=== PATIENT | female | born 1970 | race African-American/Black ===

== ENCOUNTER 2019-02-16 14:20 | Emergency (ER) | payer OTHER ==
[2019-02-16 14:23] VITALS: BMI 31.6
--- NOTE | 2019-02-16 14:33 | PDOC ---
History of Present Illness <Verna Ly - Last Filed: 02/16/19 14:33> - General History Source: Patient Exam Limitations: No Limitations - History of Present Illness Initial Comments: 02/16/19 15:07 49y F presents with bumps her scalp for the past 1.5 minths. pt notse the bumps are not itchy, she has not had any hair treatments, new shampoos/conditioners/ hair products - [facility] kind [facility] that didnt help. she never had these before. denies any fever/chills, no bumps/masses anywhere else in her body. denies any other symptmos including fever/chills, cough, abd pain, n/v. ROS: HEAD: bumps on her head General: denies fver/chills, genearlized weakness neuro: denies headache exam: genearl: no acut edistress scalp: ocasional excoriation on scalp with surrounding dry flakey skin, no erythema/induration/fluctuance, mildly tender to plaption. unclear cause - no obviuos triger, does nto appear to be infectious. no signs of psoriasis or other skin/inflammatory condition will have pt fu with derm again return precautions were discussed I discussed the physical exam findings, ancillary test results and final diagnoses with the patient. I answered all of the patient's questions. The patient was satisfied with the care received and felt comfortable with the discharge plan and treatment plan. The patient will call their primary care physician within 24 hours to arrange follow-up and will return to the Emergency Department with any new, persistent or worsening symptoms. <Amando Simmons - Last Filed: 02/16/19 15:12> - General Chief Complaint: Rash Stated Complaint: SCABS IN HEAD Time Seen by Provider: 02/16/19 14:31 Past History - Past Medical History COPD: No - Surgical History Appendectomy: Yes - Immunization History Immunization Up to Date: Yes - Suicide/Smoking/Psychosocial Hx Smoking Status: No Smoking History: Never smoked Number of Cigarettes Smoked Daily: 0 Hx Alcohol Use: No Drug/Substance Use Hx: No Substance Use Type: None <Verna Ly - Last Filed: 02/16/19 14:33> <Amando Simmons - Last Filed: 02/16/19 15:12> - Past Medical History Allergies/Adverse Reactions: Allergies Allergy/AdvReac Type Severity Reaction Status Date / Time No Known Allergies Allergy Verified 02/16/19 14:24 Home Medications: Ambulatory Orders NK [No Known Home Medication] 02/16/19 *Physical Exam - Vital Signs Last Vital Signs Temp Pulse Resp BP Pulse Ox 0/0 L 02/16/19 14:21 <Verna Ly - Last Filed: 02/16/19 14:33> - Vital Signs Last Vital Signs Temp Pulse Resp BP Pulse Ox 0/0 L 02/16/19 14:21 <Amando Simmons - Last Filed: 02/16/19 15:12> *DC/Admit/Observation/Transfer <Verna Ly - Last Filed: 02/16/19 14:33> - Discharge Dispostion Decision to Admit order: No <Amando Simmons - Last Filed: 02/16/19 15:12> Diagnosis at time of Disposition: Excoriation of scalp Qualifiers: Encounter type: initial encounter Qualified Code(s): S00.01XA - Abrasion of scalp, initial encounter - Discharge Dispostion Disposition: HOME Condition at time of disposition: Improved - Referrals Referrals: Tl Peter [Primary Care Provider] - - Patient Instructions Additional Instructions: follow upwith your analysis engineer for reevluation of your scalp lesions. Print Language: GEORGIAN - Post Discharge Activity
[2019-02-16 15:12] VITALS: BP 129/70; PULSE 67; TEMP 98.4
== END 2019-02-16 15:43 | disposition home or self-care (01) ==
LOC: SUPCPDRO 14:20 → FER 14:20
DX: S00.01XA Abrasion of scalp, initial encounter (principal); X58.XXXA Exposure to other specified factors, initial encounter; Y93.89 Activity, other specified; Y92.89 Other specified places as the place of occurrence of the external cause
CPT/HCPCS: 99281-25

== ENCOUNTER 2020-04-07 18:02 | Emergency (ER) | payer OTHER ==
[2020-04-07 18:22] VITALS: BP 113/61; PULSE 70; TEMP 98.1; BMI 31.4
--- OUTSIDE RECORDS SUMMARY | 2020-04-07 18:38 | XMS ---
:1970 [facility] Support Name Relationship Address Phone - Unavailable Unavailable Unavailable EUCLID Kiwigrid Unavailable [address] [phone] [place] [address] GENEVA CORBIN MOTHER [address] [place] [address] Geneva Corbin Unavailable Unavailable Re-disclosure Warning The records that you are about to access may contain information from federally- assisted alcohol or drug abuse programs. If such information is present, then the following federally mandated warning applies: This information has been disclosed to you from records protected by federal confidentiality rules (42 CFR part 2). The federal rules prohibit you from making any further disclosure of this information unless further disclosure is expressly permitted by the written consent of the person to whom it pertains or as otherwise permitted by 42 CFR part 2. A general authorization for the release of medical or other information is NOT sufficient for this purpose. The Federal rules restrict any use of the information to criminally investigate or prosecute any alcohol or drug abuse patient.The records that you are about to access may contain highly sensitive health information, the redisclosure of which is protected by Article 27-F of the [facility] Public Health law. If you continue you may haveaccess to information: Regarding HIV / AIDS; Provided by facilities licensed or operated by the [facility] Office of Mental Health; or Provided by the [facility] Office for People With Developmental Disabilities. If such information is present, then the following [facility] mandated warning applies: This information has been disclosed to you from confidential records which are protected by state law. State law prohibits you from making any further disclosure of this information without the specific written consent of the person to whom it pertains, or as otherwise permitted by law. Any unauthorized further disclosure in violation of state law may result in a fine or fpc sentence or both. A general authorization for the release of medical or other information is NOT sufficient authorization for further disclosure. Insurance Providers Payer name Policy type / Policy ID Covered Covered republican's Policy Plan Coverage type republican ID relationship to Sage Information sage JD [id number] SP [id number] HEALTH NON CAP Jd Care Individual 0 Self 0 [place] Policy [place] [employer] Individual 0 Self 0 [place] Policy [place] [employer] Individual 0 Self 0 [place] Policy Jd Care Individual 0 Self 0 [place] Policy JD CARE W [id number] [employer] Individual 0 Self 0 [place] Policy Philippe Vision [id number] S [id number] [facility] Dental [id number] S [id number] [employer] [facility] Medicaid [id number] S [id number] Regular Clinic Visit [place] [facility] [id number] S [id number] [place] Medicaid [place] [employer] Individual 0 Self 0 [place] Policy
--- NOTE | 2020-04-07 18:48 | PDOC ---
History of Present Illness - General Chief Complaint: Abscess Boil Stated Complaint: Abscess Boil Time Seen by Provider: 04/07/20 18:33 History Source: Patient Exam Limitations: No Limitations - History of Present Illness Initial Comments: 04/07/20 18:43 Is a 50-year-old female with unknown past medical history presenting to the ED with left ankle swelling status post insect bite. Patient states she was bit by an unknown bug few days ago which caused erythema swelling and pain to her left medial ankle. Patient states she did not take any meds at home for this. Pt otherwise denies: fevers, chills, syncope, lightheadedness, dizziness, headaches, neck pain, chest pain, shortness of breath, palpitations, back pain, abdominal pain, nausea, vomiting, diarrhea, constipation. Past History - Medical History Allergies/Adverse Reactions: Allergies Allergy/AdvReac Type Severity Reaction Status Date / Time No Known Allergies Allergy Verified 04/07/20 18:17 Home Medications: Ambulatory Orders Doxycycline Hyclate 100 mg PO BID 10 Days #20 capsule 04/07/20 COPD: No - Surgical History Appendectomy: Yes - Reproductive History Is Patient Now?: No - Immunization History Immunization Up to Date: Yes - Psycho-Social/Smoking History Smoking Status: No Smoking History: Never smoked Have you smoked in the past 12 months: No Number of Cigarettes Smoked Daily: 0 - Substance Abuse Hx (Audit-C & DAST Scrn) How often the patient has a drink containing alcohol: Never Score: In Men: 4 or > Positive; In Women: 3 or > Positive: 0 Screen Result (Pos requires Nsg. Audit-10AR): Negative In the last yr the pt used illegal drug/Rx for NonMed reason: No Score: Yes response is considered Positive: 0 Screen Result (Positive result requires Nsg. DAST-10): Negative *Physical Exam - Vital Signs Last Vital Signs Temp Pulse Resp BP Pulse Ox 98.1 F 70 16 113/61 100 04/07/20 18:18 04/07/20 18:18 04/07/20 18:18 04/07/20 18:18 04/07/20 18:18 - Physical Exam 04/07/20 18:44 Gen: AAOx 3, no acute distress, comfortable, no signs of respiratory distress HENT: atraumatic, normocephalic with no laceration or contusion. Nasal mucosa without erythema. Oropharynx without erythema or exudates. Mucous membranes moist. EYES: PERRL, EOM intact, conjunctiva pink NECK: supple; trachea midline; no JVD, no lymphadenopathy, or thyromegaly CV: RRR no murmurs, gallops, or rubs. CHEST: CTA b/l no wheezing, rales or rhonchi ABD: +BS/ND. no TTP; soft, no rebound, no guarding EXTREMITY: no cyanosis or erythema. 2+ dorsalis pedis, posterior tibial, and radial pulse. 1+ bilateral lower extremity edema; no calf swelling or tenderness SKIN: There is a 2 cm diameter circular bullae with surrounding erythema and warmth without drainage consistent with a potential spider bite HEME: no purpura or ecchymosis NEURO: normal speech, CN II-XII intact, sensation intact, normal gait, no cerebellar deficits MS: 5/5 strength in all extremities, FROM intact in all extremities. Medical Decision Making - Medical Decision Making 04/07/20 18:46 50-year-old female with left medial ankle insect bite Vital signs stable We will discharge patient with doxycycline Patient to follow-up with PCP or in ED for wound check in 48 hours Patient to follow-up with PCP regardless for lower extremity edema However since this is normal for the patient and there is no calf tenderness or risk factors for PE there is no further work-up necessary in the emergency department at this time Pt appears well and is safe and stable for discharge with strict return precautions including signs and symptoms requring immediate return to the ED Supportive care instructions explained and given to pt. Reasons to return emergently to ER explained and given. Importance of follow up with PMD and other specialists as indicated stressed to pt. Pt verbalized understanding of instructions. Pt to follow up with PMD in 2 days. Discharge - Discharge Information Problems reviewed: Yes Clinical Impression/Diagnosis: Cellulitis of left ankle Condition: Stable Disposition: HOME - Additional Discharge Information Prescriptions: Doxycycline Hyclate 100 mg PO BID 10 Days #20 capsule - Follow up/Referral Referrals: Tl Peter [Primary Care Provider] - - Patient Discharge Instructions Patient Printed Discharge Instructions: DI for Cellulitis -- Adult Additional Instructions: PLEASE SEE YOUR DOCTOR OR RETURN TO THE ED IN 48 TO 72 HOURS FOR WOUND EVALUATION - Post Discharge Activity Work/Back to School Note: Back to Work
== END 2020-04-07 18:55 | disposition home or self-care (01) ==
LOC: JER 18:02
DX: L03.116 Cellulitis of left lower limb (principal)
CPT/HCPCS: 99282-25

== ENCOUNTER 2021-04-17 04:27 | Emergency (ER) | payer OTHER ==
[2021-04-17 05:09] VITALS: BMI 32.4
[2021-04-17] MEDS ORDERED: IBUPROFEN 400 MG TABLET (FP) PO ONE ×2 (05:25→05:33)
[2021-04-17] MEDS ORDERED: LIDOCAINE 5% TOPICAL PATCH TP ONE (05:25)
[2021-04-17] MEDS ORDERED: LIDOCAINE 5% TOPICAL PATCH ONE (05:32)
[2021-04-17] MEDS ORDERED: IBUPROFEN 600 MG TABLET (FP) PO ONE (05:33)
[2021-04-17] MEDS ORDERED: morphine SULFATE IMMEDIATE RELEASE 30 MG TAB PO ONE (06:47)
[2021-04-17] MEDS ORDERED: morphine SULFATE IMMEDIATE RELEASE 30 MG TAB ONE (06:53)
[2021-04-17 08:18] VITALS: BP 134/69; PULSE 74; TEMP 98.5
[2021-04-17] MEDS ORDERED: LIDOCAINE PATCH REMOVAL MC SCH (22:00)
== END 2021-04-17 07:55 | disposition home or self-care (01) ==
LOC: JER 04:27
DX: M25.561 Pain in right knee (principal); M25.562 Pain in left knee; M54.2 Cervicalgia; W01.0XXA Fall on same level from slipping, tripping and stumbling without subsequent striking against object, initial encounter
CPT/HCPCS: 73560-TC-LT-FY; 73560-TC-RT-FY; 99284-25

== ENCOUNTER 2022-12-29 22:29 | Emergency (ER) | payer OTHER ==
[2022-12-29 22:33] VITALS: BP 129/51; PULSE 73; RESP 20; TEMP 99.1; BMI 32.4
[2022-12-29] MEDS ORDERED: LIDOCAINE HCL 1%, 10 MG/ML (50 mL VIAL) SQ ONE (23:26)
[2022-12-29] MEDS ORDERED: LIDOCAINE 1%/EPI 1:100000 (20 ML MULTI DOSE VIAL) INF ONE (23:33)
[2022-12-29] MEDS ORDERED: LIDOCAINE 1%/EPI 1:100000 (50 ML MULTI DOSE VIAL) ONE (23:35)
[2022-12-30] MEDS ORDERED: DIPHTH,PERTUSS(ACELL),TET 0.5 ML DISP.SYRIN IM ONE ×2 (00:09→00:15)
== END 2022-12-30 00:59 | disposition left against medical advice (07) ==
LOC: JER 22:29
DX: L02.416 Cutaneous abscess of left lower limb (principal); M79.605 Pain in left leg; M79.89 Other specified soft tissue disorders; L53.9 Erythematous condition, unspecified
CPT/HCPCS: 87070; 87205; 99283-25